=== PATIENT | female | born 1955 | race Two or more races ===

== ENCOUNTER → 2017-11-15 | Emergency (ER) | payer OTHER ==
[~2017-11-15] VITALS: Ht 154.9 cm; Wt 65.8 kg
[~2017-11-15] MED LIST: AVAPRO150 MG; KEFLEX500 MG PO; KETO10TA2 PO; SYNTHROID100 MCG
== END | disposition home or self-care (01) ==
LOC: ER 12:45
DX: S42.211A Unspecified displaced fracture of surgical neck of right humerus, initial encounter for closed fracture (principal); M25.511 Pain in right shoulder; W18.39XA Other fall on same level, initial encounter; Y93.89 Activity, other specified; Y92.512 Supermarket, store or market as the place of occurrence of the external cause; Y99.8 Other external cause status

== ENCOUNTER 2017-11-17 07:25 | Day surgery (SDC) | payer OTHER ==
[~2017-11-17 07:25] MED LIST changes: -KEFLEX500 MG PO
[2017-11-17] MEDS ORDERED: KEFLEX500 MG PO (12:22)
== END 2017-11-17 14:45 | disposition home or self-care (01) ==
LOC: CIR.AMB 07:25
DX: S42.391A Other fracture of shaft of right humerus, initial encounter for closed fracture (principal); M75.121 Complete rotator cuff tear or rupture of right shoulder, not specified as traumatic; M19.011 Primary osteoarthritis, right shoulder

== ENCOUNTER 2017-12-13 09:58 | Outpatient (CLI) | payer OTHER ==
[~2017-12-13 09:58] MED LIST changes: +KEFLEX500 MG PO
== END 2017-12-13 16:26 | disposition home or self-care (01) ==
LOC: RAD 501 09:58
DX: S42.221D 2-part displaced fracture of surgical neck of right humerus, subsequent encounter for fracture with routine healing (principal)

== ENCOUNTER 2017-12-21 12:50 | Outpatient (CLI) | payer OTHER | END 2017-12-21 16:18 | disposition home or self-care (01) | LOC: RAD 501 12:50 | DX: S42.221D 2-part displaced fracture of surgical neck of right humerus, subsequent encounter for fracture with routine healing (principal) ==

== ENCOUNTER 2018-01-18 13:13 | Outpatient (CLI) | payer OTHER | END 2018-01-18 16:22 | disposition home or self-care (01) | LOC: RAD 501 13:13 | DX: S42.221D 2-part displaced fracture of surgical neck of right humerus, subsequent encounter for fracture with routine healing (principal) ==

== ENCOUNTER 2018-10-26 13:50 | Emergency (ER) | payer OTHER ==
[~2018-10-26] VITALS: Ht 154.9 cm; Wt 63.5 kg
== END 2018-10-26 18:04 | disposition home or self-care (01) ==
LOC: ER 13:50
DX: S52.532A Colles' fracture of left radius, initial encounter for closed fracture (principal); W18.39XA Other fall on same level, initial encounter; Y93.89 Activity, other specified; Y92.89 Other specified places as the place of occurrence of the external cause; Y99.8 Other external cause status

== ENCOUNTER → 2018-10-30 | Day surgery (SDC) | payer OTHER | END | disposition home or self-care (01) | LOC: CIR.AMB 08:02 | DX: S52.532A Colles' fracture of left radius, initial encounter for closed fracture (principal) ==

== ENCOUNTER 2018-11-24 07:21 | Outpatient (CLI) | payer OTHER | END 2018-11-24 07:34 | disposition home or self-care (01) | LOC: LAB 07:21 | DX: E55.9 Vitamin D deficiency, unspecified (principal); M85.9 Disorder of bone density and structure, unspecified; E21.3 Hyperparathyroidism, unspecified; E88.89 Other specified metabolic disorders; M81.8 Other osteoporosis without current pathological fracture; E56.1 Deficiency of vitamin K ==

== ENCOUNTER → 2018-12-25 | Outpatient (CLI) | payer OTHER | END | disposition home or self-care (01) | LOC: RAD 501 13:55 | DX: S52.532D Colles' fracture of left radius, subsequent encounter for closed fracture with routine healing (principal) ==

== ENCOUNTER → 2019-09-05 | Outpatient (CLI) | payer OTHER | END | disposition home or self-care (01) | LOC: RAD 14:32 | DX: M25.511 Pain in right shoulder (principal) ==

== ENCOUNTER 2023-08-31 09:59 | Outpatient (CLI) | payer OTHER | END 2023-08-31 10:14 | disposition home or self-care (01) | LOC: RAD 09:59 | PROVIDERS: ATTEND Orthopaedic Surgery | DX: S42.321A Displaced transverse fracture of shaft of humerus, right arm, initial encounter for closed fracture (principal) ==

== ENCOUNTER 2024-05-02 11:38 | Emergency (ER) | payer OTHER ==
[~2024-05-02] VITALS: Ht 152.4 cm; Wt 63.5 kg
== END 2024-05-02 13:47 | disposition home or self-care (01) ==
LOC: ER 11:40
DX: M12.561 Traumatic arthropathy, right knee (principal)